=== PATIENT | female | born 1995 | race Two or more races ===

== ENCOUNTER 2023-10-23 15:55 | Outpatient (CLI) | payer OTHER | END 2023-10-23 15:56 | disposition home or self-care (01) | LOC: PRENATAL 15:55 | PROVIDERS: ATTEND Obstetrics & Gynecology Maternal & Fetal Medicine | DX: O35.9XX0 Maternal care for (suspected) fetal abnormality and damage, unspecified, not applicable or unspecified (principal); O34.219 Maternal care for unspecified type scar from previous cesarean delivery; O44.03 Complete placenta previa NOS or without hemorrhage, third trimester; Z3A.32 32 weeks gestation of pregnancy ==

== ENCOUNTER 2023-12-05 12:39 | Inpatient (IN) | payer OTHER ==
[~2023-12-05] VITALS: Ht 121.9 cm; Wt 57.2 kg
[2023-12-05 11:29] VITALS: BP 121/56; BP 121/86
[2023-12-05] MEDS ORDERED: AMPICILLIN SODIUM 2,000 MG VIAL ONE ×2 (13:14→23:45)
[2023-12-05 13:42] LABS: HEMATOCRIT 31.6 % (36.0-45.00); MEAN CELL VOLUME 82.4 fL (80.00-100.00); MEAN CORPUSCULAR HEMOGLOBIN 28.5 pg (27.00-32.0); MEAN CORPUSCULAR HGB CONC 34.6 g/dl (32.0-36.0); RED BLOOD COUNT 3.84 M/uL (4.00-6.00); RED CELL DISTRIBUTION WIDTH 13.6 % (11.5-14.5)
[2023-12-05 13:43] LABS: URINE APPEARANCE Cloudy; URINE BILIRRUBIN Negative (NEGATIVE); URINE BLOOD Trace; URINE COLOR Dark Yellow; URINE GLUCOSE Negative (NEGATIVE); URINE KETONE Trace (NEGATIVE); URINE LEUKOCYTE Moderate; URINE NITRATE Negative; URINE PROTEIN Trace (NEGATIVE)
[2023-12-05 13:44] LABS: PLATELET COUNT 136 K/uL (150-450)
[2023-12-05 13:45] LABS: URINE EPITHELIAL CELLS 52.7 uL (0.0-38.8); URINE RBC 7.3 uL (0.0-20.8); URINE WBC 404.7 uL (0.0-23.2)
[2023-12-05] MEDS ORDERED: PRENATAL TABLE1 EAC1 PO (13:47)
[2023-12-05 13:53] LABS: URINE CAST 0.76 uL (0.0-1.40)
[2023-12-05 13:56] LABS: URINE CRYSTALS FEW /HPF; URINE MUCUS MODERATE
[2023-12-05] MEDS ORDERED: AMPICILLIN SODIUM 2,000 MG in 0.9 % SODIUM CHLORIDE 100 ML IV SCH (14:00)
[2023-12-05 14:18] LABS: ALBUMIN 2.7 gm/dL (3.4-5.0); BILIRUBIN TOTAL 0.39 mg/dL (0.3-1.2); CALCIUM 8.9 mg/dL (8.5-10.1); GFR 279.63; GLOBULINA 3.9 G/DL (2.4-3.5); POTASSIUM 3.92 mEq/L (3.5-5.1); TOTAL PROTEIN 6.6 gm/dL (6.4-8.2)
[2023-12-05 14:19] LABS: CREATININE SERUM 0.29 mg/dL (0.55-1.02)
[2023-12-05 14:25] LABS: INR 0.97; PARTIAL THROMBOPLASTIN TIME 27.1 SECONDS (22.0-34.0); PROTHROMBIN TIME 10.6 SECONDS (9.0-11.5)
[2023-12-05 15:31] VITALS: BP 109/71
[2023-12-05 20:16] VITALS: BP 115/77
[2023-12-05 23:35] VITALS: BP 104/70
[2023-12-06 03:22] VITALS: BP 103/65
[2023-12-06 06:38] VITALS: BP 120/81; O2SAT 98
[2023-12-06] MEDS ORDERED: RINGERS SOLUTION,LACTATED 1,000 ML IV SCH (07:30)
[2023-12-06 11:45] VITALS: BP 103/63
[2023-12-06 15:42] VITALS: BP 117/74
[2023-12-06 20:11] VITALS: BP 123/73
[2023-12-06 23:20] VITALS: BP 117/76
[2023-12-07 03:25] VITALS: BP 115/75
[2023-12-07 07:34] VITALS: BP 119/76
[2023-12-07] MEDS ORDERED: MEPERIDINE HCL/PF 50 MG/ML VIAL IV ONE (09:30)
[2023-12-07 09:42] VITALS: BP 131/84
[2023-12-07] MEDS ORDERED: PROMETHAZINE HCL 25 MG/ML AMPUL IV NR (10:00)
[2023-12-07] MEDS ORDERED: AMPICILLIN SODIUM 2,000 MG VIAL ONE (12:39)
[2023-12-07 15:20] VITALS: BP 121/79
[2023-12-07] MEDS ORDERED: OXYTOCIN 10 UNITS/ML VIAL ONE ×2 (15:39→20:37)
[2023-12-07] MEDS ORDERED: ERYTHROMYCIN BASE OPHT 1GM EACH TUBE OP ONE (15:39)
[2023-12-07] MEDS ORDERED: PROMETHAZINE HCL 25 MG/ML AMPUL IM SCH (17:36)
[2023-12-07] MEDS ORDERED: MEPERIDINE HCL/PF 50 MG/ML VIAL IM PRN (17:45)
[2023-12-07] MEDS ORDERED: MORPHINE SULFATE 4 MG/ML VIAL IV ONE ×2 (19:20→19:50)
[2023-12-07] MEDS ORDERED: CARBOPROST TROMETHAMINE 250 MCG/ML AMPUL IM ONE ×2 (20:09→20:15)
[2023-12-07] MEDS ORDERED: ONDANSETRON HCL 2 MG/ML VIAL IV ONE (20:35)
[2023-12-07] MEDS ORDERED: OXYTOCIN 20 UNITS/1000ML RL PIGGYBAG IV ONE (20:45)
[2023-12-07 20:54] LABS: HEMATOCRIT 30.8 % (36.0-45.00); HEMOGLOBIN 10.2 g/dL (12.0-15.00); MEAN CELL VOLUME 84.1 fL (80.00-100.00); MEAN CORPUSCULAR HEMOGLOBIN 27.8 pg (27.00-32.0); MEAN CORPUSCULAR HGB CONC 33.1 g/dl (32.0-36.0); PLATELET COUNT 140 K/uL (150-450); RED BLOOD COUNT 3.66 M/uL (4.00-6.00); RED CELL DISTRIBUTION WIDTH 13.6 % (11.5-14.5)
[2023-12-07] MEDS ORDERED: AMPICILLIN SODIUM 1,000 MG VIAL ONE (20:57)
[2023-12-07 21:56] VITALS: BP 148/102; BP 152/104
[2023-12-07] MEDS ORDERED: OXYTOCIN 1,000 ML IV SCH (23:15)
[2023-12-07 23:35] VITALS: BP 133/85
[2023-12-07] MEDS ORDERED: MEPERIDINE HCL/PF 50 MG/ML VIAL IV PRN (23:45)
[2023-12-07] MEDS ORDERED: PROMETHAZINE HCL 25 MG/ML AMPUL IV PRN (23:45)
[2023-12-08] VITALS (7 sets, daily range): BP systolic 117–147; BP diastolic 80–87; O2SAT 99
[2023-12-08] MEDS ORDERED: PROMETHAZINE HCL 25 MG/ML AMPUL ONE (08:08)
[2023-12-08] MEDS ORDERED: AMPICILLIN SODIUM 2,000 MG VIAL ONE (08:09)
[2023-12-08] MEDS ORDERED: OxyCODONE HCL/APAP UD (PERCOCET) PO PRN (12:00)
[2023-12-08 12:32] LABS: HEMATOCRIT 33.1 % (36.0-45.00); HEMOGLOBIN 10.9 g/dL (12.0-15.00); MEAN CELL VOLUME 84.3 fL (80.00-100.00); MEAN CORPUSCULAR HEMOGLOBIN 27.8 pg (27.00-32.0); PLATELET COUNT 151 K/uL (150-450); RED BLOOD COUNT 3.93 M/uL (4.00-6.00); RED CELL DISTRIBUTION WIDTH 13.5 % (11.5-14.5)
[2023-12-09 01:00] VITALS: BP 112/76
[2023-12-09 08:42] VITALS: BP 99/66
[2023-12-09 12:55] VITALS: BP 122/78
[2023-12-09 17:43] VITALS: BP 109/72
[2023-12-10] VITALS: BP 124/83; BP 130/90
[2023-12-10 08:00] VITALS: BP 101/67
[2023-12-10 16:00] VITALS: BP 130/89
== END 2023-12-10 19:36 | disposition home or self-care (01) | DRG 785 ==
LOC: LDR 12:39 → OB/GYN 12-07 17:46
PROVIDERS: ADMIT Obstetrics & Gynecology Obstetrics; ATTEND Obstetrics & Gynecology Obstetrics
PROC: 4A1HXCZ Monitoring of Products of Conception, Cardiac Rate, External Approach (ICD-10-PCS; 2023-12-05)
PROC: BU4CZZZ Ultrasonography of Uterus and Ovaries (ICD-10-PCS; 2023-12-05)
PROC: BY4FZZZ Ultrasonography of Third Trimester, Single Fetus (ICD-10-PCS; 2023-12-05)
PROC: 0UB70ZZ Excision of Bilateral Fallopian Tubes, Open Approach (ICD-10-PCS; 2023-12-07)
PROC: 10D00Z1 Extraction of Products of Conception, Low, Open Approach (ICD-10-PCS; principal; 2023-12-07 15:00)
DX: O34.211 Maternal care for low transverse scar from previous cesarean delivery (principal); O26.843 Uterine size-date discrepancy, third trimester; O36.8130 Decreased fetal movements, third trimester, not applicable or unspecified; O26.853 Spotting complicating pregnancy, third trimester; Z3A.38 38 weeks gestation of pregnancy; Z37.0 Single live birth; Z30.2 Encounter for sterilization; Z20.822 Contact with and (suspected) exposure to COVID-19